=== PATIENT | female | born 1955 | race Caucasian/White ===

== ENCOUNTER 2022-06-12 10:07 | Emergency (ER) | payer BC, MEDICARE, OTHER | END 2022-06-12 15:01 | disposition home or self-care (01) | LOC: JP.ED 10:07 | DX: S42.211A Unspecified displaced fracture of surgical neck of right humerus, initial encounter for closed fracture (principal); Z88.0 Allergy status to penicillin; W18.09XA Striking against other object with subsequent fall, initial encounter | CPT/HCPCS: 73030-RT; 99281; 99283 ==